=== PATIENT | female | born 1990 | race Caucasian/White ===

== ENCOUNTER 2016-05-21 07:49 | Emergency (ER) | payer OTHER, SELFPAY ==
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
== END 2016-05-21 08:35 | disposition home or self-care (01) ==
LOC: BURERS 07:49
DX: O99.511 Diseases of the respiratory system complicating pregnancy, first trimester (principal); J30.1 Allergic rhinitis due to pollen; O16.1 Unspecified maternal hypertension, first trimester; O99.341 Other mental disorders complicating pregnancy, first trimester; F31.9 Bipolar disorder, unspecified
CPT/HCPCS: 99283